=== PATIENT | female | born 1940 | race Caucasian/White ===

== ENCOUNTER → 2017-04-09 | Outpatient (CLI) | payer MEDICARE | END | disposition home or self-care (01) | LOC: CFH 07:17 | PROVIDERS: ATTEND Psychiatry & Neurology Neurology | DX: I65.23 Occlusion and stenosis of bilateral carotid arteries (principal); I07.1 Rheumatic tricuspid insufficiency; Z82.49 Family history of ischemic heart disease and other diseases of the circulatory system; Z86.73 Personal history of transient ischemic attack (TIA), and cerebral infarction without residual deficits | CPT/HCPCS: 70544; 93306; 93880 ==

== ENCOUNTER → 2017-10-23 | Outpatient (CLI) | payer MEDICARE | END | disposition home or self-care (01) | LOC: CFH 09:41 | PROVIDERS: ATTEND Family Medicine | DX: Z13.820 Encounter for screening for osteoporosis (principal); M85.88 Other specified disorders of bone density and structure, other site; N95.9 Unspecified menopausal and perimenopausal disorder | CPT/HCPCS: 77080 ==

== ENCOUNTER 2017-10-31 20:18 | Inpatient (IN) | payer MEDICARE ==
[~2017-10-31] VITALS: Ht 154.9 cm; Wt 57.6 kg
[2017-10-31] MEDS ORDERED: ASPI-515 PO (20:29)
[2017-10-31 21:30] LABS: BASOPHILS # (AUTO) 0.02 x10^3/uL (0-0.1); BASOPHILS % (AUTO) 0 % (0-1); EOSINOPHILS # (AUTO) 0.06 x10^3/uL (0-0.4); EOSINOPHILS % (AUTO) 0 % (1-7); LYMPHOCYTES # (AUTO) 0.98 x10^3/uL (1-3.4); LYMPHOCYTES % (AUTO) 7 % (22-44); MD NO; MEAN CORPUSCULAR HGB CONC 31.6 g/dL (32.4-35.8); MEAN CORPUSCULAR VOLUME 69.7 fL (80-100); MEAN PLATELET VOLUME 6.9 fL (7.4-10.4); MONOCYTES # (AUTO) 1.26 x10^3/uL (0.2-0.8); MONOCYTES % (AUTO) 9 % (2-9); NEUTROPHILS # (AUTO) 12.32 x10^3/uL (1.8-6.8); NEUTROPHILS % (AUTO) 84 % (42-75); PLATELET COUNT 859 x10^3/uL (130-400); RED BLOOD COUNT 4.66 x10^6/uL (3.82-5.3); RED CELL DISTRIBUTION WIDTH 17.5 % (9.6-15.2)
[2017-10-31] MEDS ORDERED: SODIUM CHLORIDE 0.9% 1,000ML IVBOLUS ONE (21:30)
[2017-10-31] MEDS ORDERED: SODIUM CHLORIDE FLUSH 10ML SYR IVF ONE (21:30)
[2017-10-31 21:38] LABS: ANION GAP 10 mmol/L (5-15); CALCIUM 9.7 mg/dL (8.5-10.1); CHLORIDE 99 mmol/L (98-107)
[2017-10-31 21:44] LABS: TROPONIN I < 0.015 ng/mL (0.000-0.045)
[2017-10-31 23:50] VITALS: BP 146/65
[2017-11-01] MEDS ORDERED: morphine SULFATE 10 MG/ML, 1ML IVPush PRN (01:00)
[2017-11-01] MEDS ORDERED: hydrALAzine 20 MG/ML, 1ML IVPush PRN (01:00)
[2017-11-01] MEDS ORDERED: ENALAPRILAT 1.25 MG/ML, 2ML IVPush PRN (01:00)
[2017-11-01] MEDS ORDERED: HEPARIN 5,000 UNITS/ML, 1ML SQ SCH (01:00)
[2017-11-01] MEDS ORDERED: POLYETHYLENE GLYCOL 17 GM PACKET PO PRN (01:00)
[2017-11-01] MEDS ORDERED: ONDANSETRON 2MG/ML, 2ML IVPush PRN (01:00)
[2017-11-01] MEDS ORDERED: ACETAMINOPHEN 325 MG TABLET PO PRN (01:00)
[2017-11-01] MEDS ORDERED: OXYcodone IR 5MG TABLET PO PRN (01:00)
[2017-11-01] MEDS ORDERED: BISACODYL 10 MG SUPP PR PRN (01:00)
[2017-11-01] MEDS: ASPIRIN 81 MG TABLET EC PO SCH ×2 (01:04→20:45)
[2017-11-01] MEDS: SODIUM CHLORIDE 0.9% 1,000 ML IV SCH ×2 (01:04→11:41)
[2017-11-01 01:40] VITALS: BP 106/57
[2017-11-01 01:53] LABS: HEMOGLOBIN A1C 5.4 % (4.2-6.3)
[2017-11-01 01:57] LABS: FREE T4 (FREE THYROXINE) 1.32 ng/dL (0.76-1.46); THYROID STIMULATING HORMONE 2.78 mIU/L (0.358-3.740)
[2017-11-01 07:34] VITALS: BP 116/58
[2017-11-01] MEDS: SENNA/DOCUSATE TABLET PO SCH (08:43)
[2017-11-01 10:46] LABS: BASOPHILS # (AUTO) 0.09 x10^3/uL (0-0.1); BASOPHILS % (AUTO) 1 % (0-1); EOSINOPHILS # (AUTO) 0.05 x10^3/uL (0-0.4); EOSINOPHILS % (AUTO) 0 % (1-7); HEMOGRAM NOTE RECHECKED; LYMPHOCYTES # (AUTO) 0.75 x10^3/uL (1-3.4); LYMPHOCYTES % (AUTO) 7 % (22-44); MD NO; MEAN CORPUSCULAR HEMOGLOBIN 21.7 pg (27.0-34.8); MEAN CORPUSCULAR HGB CONC 31.5 g/dL (32.4-35.8); MEAN CORPUSCULAR VOLUME 68.8 fL (80-100); MEAN PLATELET VOLUME 6.9 fL (7.4-10.4); MONOCYTES # (AUTO) 1.03 x10^3/uL (0.2-0.8); MONOCYTES % (AUTO) 10 % (2-9); NEUTROPHILS # (AUTO) 8.87 x10^3/uL (1.8-6.8); NEUTROPHILS % (AUTO) 82 % (42-75); PLATELET COUNT 820 x10^3/uL (130-400); RED BLOOD COUNT 4.09 x10^6/uL (3.82-5.3); RED CELL DISTRIBUTION WIDTH 17.6 % (9.6-15.2)
[2017-11-01 10:50] LABS: ALBUMIN 1.8 g/dL (3.4-5.0); ANION GAP 9 mmol/L (5-15); CALCIUM 8.7 mg/dL (8.5-10.1); CHLORIDE 105 mmol/L (98-107)
[2017-11-01 10:53] LABS: ALANINE AMINOTRANSFERASE 15 U/L (12-78); ALKALINE PHOSPHATASE 205 U/L (45-117); BILIRUBIN,TOTAL 0.5 mg/dL (0.2-1.0); CREATININE 0.58 mg/dL (0.55-1.02); TOTAL PROTEIN 7.3 g/dL (6.4-8.2)
[2017-11-01 12:11] LABS: MICROSCOPIC AUTO
[2017-11-01 12:21] LABS: CULTURE INDICATED? NO
[2017-11-01 14:13] VITALS: BP 109/66
[2017-11-01 20:21] VITALS: BP 129/53
[2017-11-02 01:41] VITALS: BP 124/56
[2017-11-02 04:44] LABS: BASOPHILS # (AUTO) 0.07 x10^3/uL (0-0.1); BASOPHILS % (AUTO) 1 % (0-1); EOSINOPHILS % (AUTO) 1 % (1-7); LYMPHOCYTES # (AUTO) 0.85 x10^3/uL (1-3.4); LYMPHOCYTES % (AUTO) 8 % (22-44); MD NO; MEAN CORPUSCULAR HGB CONC 31.5 g/dL (32.4-35.8); MEAN CORPUSCULAR VOLUME 69.8 fL (80-100); MEAN PLATELET VOLUME 7.1 fL (7.4-10.4); MONOCYTES # (AUTO) 1.31 x10^3/uL (0.2-0.8); MONOCYTES % (AUTO) 12 % (2-9); NEUTROPHILS # (AUTO) 8.39 x10^3/uL (1.8-6.8); NEUTROPHILS % (AUTO) 78 % (42-75); PLATELET COUNT 756 x10^3/uL (130-400); RED BLOOD COUNT 3.84 x10^6/uL (3.82-5.3); RED CELL DISTRIBUTION WIDTH 16.9 % (9.6-15.2)
[2017-11-02 04:52] LABS: ALBUMIN 1.7 g/dL (3.4-5.0); ANION GAP 7 mmol/L (5-15); CALCIUM 8.5 mg/dL (8.5-10.1); CHLORIDE 106 mmol/L (98-107)
[2017-11-02 04:56] LABS: ALANINE AMINOTRANSFERASE 12 U/L (12-78); ALKALINE PHOSPHATASE 176 U/L (45-117); BILIRUBIN,TOTAL 0.3 mg/dL (0.2-1.0); CHOLESTEROL, TOTAL 93 mg/dL (140-239); CREATININE 0.58 mg/dL (0.55-1.02); HDL CHOL % 25 % (28-40); HDL CHOLESTEROL (DIRECT) 23 mg/dL (40-60); LDL CHOLESTEROL,CALCULATED 61 mg/dL (54-169); LDL/HDL RATIO 2.7 (0.5-3.0); TOTAL PROTEIN 6.9 g/dL (6.4-8.2); TRIGLYCERIDES 46 mg/dL (50-200); VLDL CHOLESTEROL 9 mg/dL (0-25)
[2017-11-02 08:24] VITALS: BP 131/64
[2017-11-02] MEDS ORDERED: OMNIPAQUE 350 MG/ML, 100ML BOTTLE ONE (08:40)
[2017-11-02] MEDS ORDERED: GADOBUTROL 10 MMOL/10 ML VIAL ONE (12:42)
[2017-11-02] MEDS: SENNA/DOCUSATE TABLET PO SCH (13:56)
[2017-11-02 14:08] VITALS: BP 119/64
[2017-11-02 19:11] VITALS: BP 113/52
[2017-11-02] MEDS: ASPIRIN 81 MG TABLET EC PO SCH (20:12)
[2017-11-03 01:15] VITALS: BP 126/57
[2017-11-03 04:52] LABS: BASOPHILS # (AUTO) 0.07 x10^3/uL (0-0.1); BASOPHILS % (AUTO) 1 % (0-1); EOSINOPHILS % (AUTO) 2 % (1-7); LYMPHOCYTES # (AUTO) 0.99 x10^3/uL (1-3.4); LYMPHOCYTES % (AUTO) 10 % (22-44); MD NO; MEAN CORPUSCULAR HGB CONC 31.9 g/dL (32.4-35.8); MEAN CORPUSCULAR VOLUME 68.9 fL (80-100); MONOCYTES # (AUTO) 1.29 x10^3/uL (0.2-0.8); MONOCYTES % (AUTO) 13 % (2-9); NEUTROPHILS # (AUTO) 7.52 x10^3/uL (1.8-6.8); NEUTROPHILS % (AUTO) 75 % (42-75); PLATELET COUNT 757 x10^3/uL (130-400); RED BLOOD COUNT 4.12 x10^6/uL (3.82-5.3); RED CELL DISTRIBUTION WIDTH 17.6 % (9.6-15.2)
[2017-11-03 08:20] VITALS: BP 113/65
[2017-11-03] MEDS ORDERED: FENTANYL PF 100 MCG/2ML ONE (12:06)
[2017-11-03] MEDS ORDERED: NALOXONE 1 MG/ML, 2ML ONE (12:07)
[2017-11-03] MEDS ORDERED: MIDAZOLAM 1 MG/ML, 5ML ONE (12:07)
[2017-11-03] MEDS ORDERED: FLUMAZENIL 0.1 MG/1 ML, 5ML ONE (12:07)
[2017-11-03 14:30] VITALS: BP 113/53
[2017-11-03 14:45] VITALS: BP 106/46
[2017-11-03 16:36] VITALS: BP 106/46
[2017-11-03 16:41] VITALS: BP 114/54
== END 2017-11-03 18:38 | disposition home or self-care (01) | DRG 840 ==
LOC: ED 23:44 → EDIP 23:52 → 3NW 11-01 00:02
PROVIDERS: ADMIT Internal Medicine; ATTEND Family Medicine
PROC: 0WBH3ZX Excision of Retroperitoneum, Percutaneous Approach, Diagnostic (ICD-10-PCS; principal; 2017-11-03)
DX: C81.23 Mixed cellularity Hodgkin lymphoma, intra-abdominal lymph nodes (principal); E43 Unspecified severe protein-calorie malnutrition; D64.9 Anemia, unspecified; D47.3 Essential (hemorrhagic) thrombocythemia; D72.829 Elevated white blood cell count, unspecified; G90.9 Disorder of the autonomic nervous system, unspecified; I65.29 Occlusion and stenosis of unspecified carotid artery; K59.00 Constipation, unspecified; Z80.0 Family history of malignant neoplasm of digestive organs; Z82.5 Family history of asthma and other chronic lower respiratory diseases; Z83.3 Family history of diabetes mellitus; Z85.41 Personal history of malignant neoplasm of cervix uteri; Z86.73 Personal history of transient ischemic attack (TIA), and cerebral infarction without residual deficits; Z90.710 Acquired absence of both cervix and uterus; Z68.24 Body mass index [BMI] 24.0-24.9, adult; Z90.49 Acquired absence of other specified parts of digestive tract; Z88.0 Allergy status to penicillin
CPT/HCPCS: 36415; 49180; 70544; 70549; 70553; 71275; 74022; 74177; 77012; 80048; 80053; 80061; 81001; 82040; 82378; 83036; 83615; 83735; 84439; 84443; 84484; 85025; 86301; 87040; 88184; 88185; 88305; 88341; 88342; 93005; 93306; 96360; 96361; 99156; 99157; A9585; J1644; J2250; J3010; Q9967; G0461; J2310; J7030

== ENCOUNTER 2017-11-24 14:28 | Emergency (ER) | payer MEDICARE ==
[~2017-11-24] VITALS: Ht 154.9 cm; Wt 54.0 kg
[~2017-11-24 14:28] MED LIST: ASPI-515 PO
[2017-11-24 14:30] VITALS: BP 120/62
[2017-11-25] MEDS ORDERED: POLY17PO5 PO (15:35)
[2017-11-25] MEDS ORDERED: OMEP-110 PO (15:35)
[2017-11-25] MEDS ORDERED: DOCU-131 PO (15:35)
== END 2017-11-24 16:27 ==
LOC: ED 16:21
DX: R11.0 Nausea (principal); R53.1 Weakness; Z53.21 Procedure and treatment not carried out due to patient leaving prior to being seen by health care provider

== ENCOUNTER 2017-11-24 17:15 | Inpatient (IN) | payer MEDICARE ==
[~2017-11-24] VITALS: Ht 152.4 cm; Wt 53.5 kg
[2017-11-24] MEDS ORDERED: PANTOPRAZOLE 80 MG in SODIUM CHLORIDE 0.9% 50 ML IVPB ONE (17:39)
[2017-11-24] MEDS ORDERED: SODIUM CHLORIDE 0.9% 1,000 ML IV ONE ×2 (17:39→19:56)
[2017-11-24] MEDS ORDERED: SODIUM CHLORIDE FLUSH 10ML SYR IVF ONE (18:00)
[2017-11-24] MEDS ORDERED: SODIUM CHLORIDE 0.9% 1,000ML IVBOLUS ONE (18:00)
[2017-11-24 18:29] LABS: INTERNATIONAL NORMALIZED RATIO 1.13 (0.93-1.1); PROTHROMBIN TIME 11.6 Seconds (9.6-11.5)
[2017-11-24 18:33] LABS: ANION GAP 8 mmol/L (5-15); CALCIUM 9.5 mg/dL (8.5-10.1); CHLORIDE 96 mmol/L (98-107)
[2017-11-24 18:41] LABS: ALANINE AMINOTRANSFERASE 82 U/L (12-78); ALBUMIN 1.8 g/dL (3.4-5.0); ALKALINE PHOSPHATASE 352 U/L (45-117); BILIRUBIN,TOTAL 0.4 mg/dL (0.2-1.0); CREATININE 0.65 mg/dL (0.55-1.02); TOTAL PROTEIN 8.6 g/dL (6.4-8.2); TROPONIN I < 0.015 ng/mL (0.000-0.045)
[2017-11-24 18:54] LABS: MICROSCOPIC INDICATED
[2017-11-24 19:00] LABS: CULTURE INDICATED? NO
[2017-11-24 19:07] LABS: MD YES; MEAN CORPUSCULAR HEMOGLOBIN 21.6 pg (27.0-34.8); MEAN CORPUSCULAR VOLUME 67.5 fL (80-100); PLATELET COUNT 840 x10^3/uL (130-400); RED CELL DISTRIBUTION WIDTH 17.8 % (9.6-15.2)
[2017-11-24 19:09] LABS: ANISOCYTOSIS 1+; BAND#(MANUAL) 0.15 x10^3/uL; BANDS%(MANUAL) 1 % (0-7); BASOS#(MANUAL) 0.45 x10^3/uL (0-0.1); BASOS% (MANUAL) 3 % (0-1); HYPOCHROMIA 1+; LYMPHS% (MANUAL) 4 % (22-44); METAMYELOCYTES# (MANUAL) 0.15 x10^3/uL (0-0); METAMYELOCYTES% (MANUAL) 1 % (0-1); MICROCYTOSIS 1+; MONOS% (MANUAL) 6 % (2-9); SEG#(MANUAL) 12.75 x10^3/uL (1.8-6.8); SEGS% (MANUAL) 85 % (42-75)
[2017-11-24 19:11] LABS: <PLATELET ESTIMATE> INCREASED; <PLT MORPHOLOGY> NORMAL PLT MORPH
[2017-11-24] MEDS ORDERED: SODIUM CHLORIDE FLUSH 10ML SYR IVF PRN (20:00)
[2017-11-24 20:55] VITALS: BP 134/60
[2017-11-24] MEDS ORDERED: hydrALAzine 20 MG/ML, 1ML IVPush PRN (21:00)
[2017-11-24] MEDS ORDERED: TEMAZEPAM 15 MG CAPSULE PO PRN (21:00)
[2017-11-24] MEDS ORDERED: ONDANSETRON ODT 4 MG PO PRN (21:00)
[2017-11-24] MEDS ORDERED: ENOXAPARIN 40 MG/0.4 ML SQ SCH (21:00)
[2017-11-24] MEDS: PANTOPRAZOLE 80 MG in SODIUM CHLORIDE 0.9% 100 ML IV SCH (22:14)
[2017-11-24 23:59] VITALS: BP 128/58
[2017-11-25 05:07] LABS: BASOPHILS # (AUTO) 0.09 x10^3/uL (0-0.1); BASOPHILS % (AUTO) 1 % (0-1); EOSINOPHILS # (AUTO) 0.21 x10^3/uL (0-0.4); EOSINOPHILS % (AUTO) 2 % (1-7); LYMPHOCYTES # (AUTO) 0.88 x10^3/uL (1-3.4); LYMPHOCYTES % (AUTO) 8 % (22-44); MD NO; MEAN CORPUSCULAR HEMOGLOBIN 21.7 pg (27.0-34.8); MEAN CORPUSCULAR HGB CONC 31.7 g/dL (32.4-35.8); MEAN CORPUSCULAR VOLUME 68.5 fL (80-100); MONOCYTES # (AUTO) 1.32 x10^3/uL (0.2-0.8); MONOCYTES % (AUTO) 11 % (2-9); NEUTROPHILS # (AUTO) 9.23 x10^3/uL (1.8-6.8); NEUTROPHILS % (AUTO) 79 % (42-75); PLATELET COUNT 790 x10^3/uL (130-400); RED CELL DISTRIBUTION WIDTH 17.8 % (9.6-15.2)
[2017-11-25 05:11] LABS: ANION GAP 9 mmol/L (5-15); CHLORIDE 105 mmol/L (98-107); CREATININE 0.58 mg/dL (0.55-1.02)
[2017-11-25] MEDS: PANTOPRAZOLE 80 MG in SODIUM CHLORIDE 0.9% 100 ML IV SCH (06:24)
[2017-11-25 07:25] VITALS: BP 108/61
[2017-11-25 07:52] LABS: ALBUMIN 1.5 g/dL (3.4-5.0); BILIRUBIN, DIRECT 0.2 mg/dL (0.1-0.2)
[2017-11-25 07:54] LABS: BILIRUBIN,INDIRECT 0.4 mg/dL (0.0-2.0); BILIRUBIN,TOTAL 0.6 mg/dL (0.2-1.0)
[2017-11-25] MEDS ORDERED: DOCUSATE 100 MG CAPSULE PO SCH (09:00)
[2017-11-25] MEDS ORDERED: POLYETHYLENE GLYCOL 17 GM PACKET PO SCH (09:00)
[2017-11-25 14:10] VITALS: BP 117/66
[2017-11-25] MEDS ORDERED: DOCU-131 PO (15:35)
[2017-11-25] MEDS ORDERED: POLY17PO5 PO (15:35)
[2017-11-25] MEDS ORDERED: OMEP-110 PO (15:35)
== END 2017-11-25 16:35 | disposition home or self-care (01) | DRG 377 ==
LOC: ED 17:45 → EDIP 19:56 → 3NW 20:40
PROVIDERS: ADMIT Hospitalist; ATTEND Hospitalist
PROC: 0T9B70Z Drainage of Bladder with Drainage Device, Via Natural or Artificial Opening (ICD-10-PCS; principal; 2017-11-24)
DX: K92.2 Gastrointestinal hemorrhage, unspecified (principal); E43 Unspecified severe protein-calorie malnutrition; C81.90 Hodgkin lymphoma, unspecified, unspecified site; I50.32 Chronic diastolic (congestive) heart failure; E86.0 Dehydration; D63.8 Anemia in other chronic diseases classified elsewhere; D62 Acute posthemorrhagic anemia; E87.1 Hypo-osmolality and hyponatremia; R62.7 Adult failure to thrive; D47.3 Essential (hemorrhagic) thrombocythemia; R74.0 Nonspecific elevation of levels of transaminase and lactic acid dehydrogenase [LDH]; D72.829 Elevated white blood cell count, unspecified; D50.9 Iron deficiency anemia, unspecified; K59.00 Constipation, unspecified; Z80.0 Family history of malignant neoplasm of digestive organs; Z82.5 Family history of asthma and other chronic lower respiratory diseases; Z83.3 Family history of diabetes mellitus; Z85.41 Personal history of malignant neoplasm of cervix uteri; Z86.73 Personal history of transient ischemic attack (TIA), and cerebral infarction without residual deficits; Z90.710 Acquired absence of both cervix and uterus; Z90.49 Acquired absence of other specified parts of digestive tract; Z79.899 Other long term (current) drug therapy; Z88.0 Allergy status to penicillin; Z79.82 Long term (current) use of aspirin; Z82.0 Family history of epilepsy and other diseases of the nervous system; Z68.23 Body mass index [BMI] 23.0-23.9, adult
CPT/HCPCS: 36415; 71045; 76705; 80048; 80053; 80076; 81001; 82728; 83540; 83550; 84484; 85014; 85018; 85025; 85610; 85730; 86677; 86850; 86900; 93005; 96361; 96365; J1650; C9113; J7030

== ENCOUNTER → 2021-01-11 | Outpatient (CLI) | payer MEDICARE ==
[~2021-01-11] MED LIST changes: -ASPI-515 PO; +ASPI-963 PO; +DOCU-131 PO; +OMEP-110 PO; +POLY17PO5 PO
== END | disposition home or self-care (01) ==
LOC: CFH 11:24
PROVIDERS: ATTEND Family Medicine
DX: M85.80 Other specified disorders of bone density and structure, unspecified site (principal); N95.9 Unspecified menopausal and perimenopausal disorder
CPT/HCPCS: 77080